=== PATIENT | male | born 1950 | race Caucasian/White ===

== ENCOUNTER 2025-01-01 09:08 | Day surgery (SDC) | payer MEDICARE, OTHER ==
[2025-01-01] MEDS ORDERED: Midazolam 1 MG/ML 2 ML SDV IV ONE (09:09)
[2025-01-01] MEDS ORDERED: Dexamethasone 4 MG/ML SDV IV ONE (09:09)
[2025-01-01] MEDS ORDERED: Sodium Chloride 0.9% 10 ML Syringe IV ONE (09:09)
[2025-01-01] MEDS ORDERED: Acetaminophen 325 MG Tab PO PRN (09:15)
[2025-01-01] MEDS ORDERED: Acetaminophen/Codeine 300-30 MG Tab PO PRN (09:15)
[2025-01-01] MEDS ORDERED: Ondansetron 4 MG/2 ML SDV IVPUSH PRN (09:15)
[2025-01-01] MEDS: Moxifloxacin 0.5% Ophth Soln 3 ML Bottle EYELF ONE (09:30)
[2025-01-01] MEDS: Proparacaine 0.5% Ophth Soln 15 ML Bottle EYELF ONE ×2 (09:30→10:31)
[2025-01-01] MEDS: Povidone-Iodine 5% Sterile Ophth Soln 30 ML Bottle EYELF ONE ×2 (09:31→10:31)
[2025-01-01] MEDS: Phenylephrine 10% Ophth Soln 5 ML Bot EYELF ONE (09:32)
[2025-01-01] MEDS: Tropicamide 1% Ophth Soln 15 ML Bottle EYELF ONE (09:32)
[2025-01-01] MEDS: Timolol Maleate 0.5% Ophth Soln 5 ML Bottle EYELF ONE (09:33)
[2025-01-01] MEDS: Cataract Ophth Solution EYELF ONE (09:33)
[2025-01-01] MEDS: Sodium Chloride 0.9% 10 ML Syringe FLUSH PRN (10:03)
[2025-01-01] MEDS: VANCOmycin 500 MG SDV EYELF ONE (10:31)
[2025-01-01] MEDS: Lidocaine 1% 30 ML SDV ONE (10:31)
[2025-01-01] MEDS: Diclofenac Sodium 0.1% Ophth Soln 5 ML Bottle EYELF ONE (10:45)
[2025-01-01] MEDS: Apraclonidine 0.5% Ophth Soln 5 ML Bot EYELF ONE (10:45)
[2025-01-01] MEDS: Dexamethasone/Neomycin/Polymyxin B Ophth Oint 3.5 GM Tube EYELF ONE (10:45)
== END 2025-01-01 11:34 | disposition home or self-care (01) ==
LOC: DL.SDS 09:08
PROVIDERS: ATTEND Ophthalmology
DX: H25.812 Combined forms of age-related cataract, left eye (principal); I10 Essential (primary) hypertension; Z79.82 Long term (current) use of aspirin; Z79.899 Other long term (current) drug therapy
CPT/HCPCS: 66984; A9270; J3370; J1100; J2250; J3490

== ENCOUNTER 2025-01-15 08:53 | Day surgery (SDC) | payer MEDICARE, OTHER ==
[2025-01-15] MEDS ORDERED: Acetaminophen 325 MG Tab PO PRN (09:15)
[2025-01-15] MEDS ORDERED: Acetaminophen/Codeine 300-30 MG Tab PO PRN (09:15)
[2025-01-15] MEDS ORDERED: Ondansetron 4 MG/2 ML SDV IVPUSH PRN (09:15)
[2025-01-15] MEDS: Proparacaine 0.5% Ophth Soln 15 ML Bottle EYERT ONE ×2 (09:32→10:13)
[2025-01-15] MEDS: Moxifloxacin 0.5% Ophth Soln 3 ML Bottle EYERT ONE (09:33)
[2025-01-15] MEDS: Tropicamide 1% Ophth Soln 15 ML Bottle EYERT ONE (09:34)
[2025-01-15] MEDS: Povidone-Iodine 5% Sterile Ophth Soln 30 ML Bottle EYERT ONE ×2 (09:34→10:13)
[2025-01-15] MEDS: Phenylephrine 10% Ophth Soln 5 ML Bot EYERT ONE (09:35)
[2025-01-15] MEDS: Timolol Maleate 0.5% Ophth Soln 5 ML Bottle EYERT ONE (09:35)
[2025-01-15] MEDS: Sodium Chloride 0.9% 10 ML Syringe FLUSH PRN (09:36)
[2025-01-15] MEDS: Cataract Ophth Solution EYERT ONE (09:37)
[2025-01-15] MEDS: Apraclonidine 0.5% Ophth Soln 5 ML Bot EYERT ONE (10:13)
[2025-01-15] MEDS: Diclofenac Sodium 0.1% Ophth Soln 5 ML Bottle EYERT ONE (10:14)
[2025-01-15] MEDS: Dexamethasone/Neomycin/Polymyxin B Ophth Oint 3.5 GM Tube EYERT ONE (10:15)
[2025-01-15] MEDS: Lidocaine 1% 30 ML SDV ONE (10:16)
[2025-01-15] MEDS: Chondroitin Sulfate/Hyaluronate Sodium Ophth Inj 0.5 ML Syringe IOCULAR ONE (10:16)
[2025-01-15] MEDS: VANCOmycin 500 MG SDV EYERT ONE (10:16)
== END 2025-01-15 11:11 | disposition home health service (06) ==
LOC: DL.SDS 08:53
PROVIDERS: ATTEND Ophthalmology
DX: H25.811 Combined forms of age-related cataract, right eye (principal); I10 Essential (primary) hypertension; J44.9 Chronic obstructive pulmonary disease, unspecified; Z88.8 Allergy status to other drugs, medicaments and biological substances; Z88.1 Allergy status to other antibiotic agents; Z79.82 Long term (current) use of aspirin; Z79.899 Other long term (current) drug therapy
CPT/HCPCS: 66982; A9270; J3370; J3490